=== PATIENT | male | born 1980 | race Caucasian/White ===

== ENCOUNTER 2019-10-14 21:34 | Inpatient (IN) ==
[2019-10-14] MEDS ORDERED: FENTANYL IV ONE (22:35)
[2019-10-14 22:55] LABS: BASO# 0.08 X1000 (0.0-0.2); BASO% 0.9 % (0.0-0.8); EOS% 2.2 % (0.0-10.0); HEMATOCRIT 48.6 % (42.0-52.0); HEMOGLOBIN 16.3 g/dL (14.0-18.0); IMM GRAN# 0.03 X1000 (0.0-0.04); IMM GRAN% 0.3 % (0.0-0.5); LYMPH# 1.72 X1000 (1.2-3.4); LYMPH% 19.2 % (20.5-51.1); MCH 29.7 PG (27-31); MCHC 33.5 g/dL (33-37); MCV 88.5 FL (81-99); MONO# 0.96 X1000 (0.11-0.59); MONO% 10.7 % (1.7-9.3); MPV 11.1 FL (7.4-10.4); NEUT# 5.97 X1000 (1.4-6.5); NEUT% 66.7 % (42.2-75.2); PLT 205 X1000 (130-400); RBC 5.49 XMIL (4.7-6.1); RDW 14.1 % (11.5-14.5); WBC 8.96 X1000 (4.8-10.8)
[2019-10-14 23:04] LABS: INR 1.03; PROTIME 13.6 Seconds (11.0-16.0); PTT 28.1 Seconds (22.3-41.8)
[2019-10-14 23:14] LABS: AGAP 16; ALB/GLOB RATIO 1.2; ALBUMIN 4.1 g/dL (3.5-5.0); ALKALINE PHOSPHATASE 92 U/L (32-122); BUN 9 mg/dL (8-22); CALCIUM 9.1 mg/dL (8.8-10.2); CHLORIDE 101 mmol/L (98-107); COSMO 283; CREATININE 0.9 mg/dL (0.7-1.2); ESTIMATED GFR > 60; GLUCOSE 145 mg/dL (70-104); GOT 34 U/L (10-34); GPT 48 U/L (10-44); POTASSIUM 4.6 mmol/L (3.5-5.1); SODIUM 141 mmol/L (136-145); TCO2 24 mmol/L (25-35); TOTAL BILIRUBIN 0.26 mg/dL (0.20-1.00); TOTAL PROTEIN 7.6 g/dL (6.3-8.3)
--- NOTE | 2019-10-14 23:52 | PROVIDER DOCUMENTATION ---
This chart was entered by Josefina Buck Scribe, acting as scribe for Fely Muñiz MD. HPI-Musculoskeletal Pain/Inj - GENERAL Chief Complaint: Extremity Injury Stated Complaint: humerus fx Time Seen by Provider: 10/14/19 21:53 Source: patient - HX OF PRESENT ILLNESS-MUSKULOSKELTAL Nature of Presenting Problem: pt is a 39 yr old male presenting via EMS post fall. pt admits he tripped and fell onto outstretched left arm, pt complains of pain to complete left arm, pt denies any other pain or injury. pt does admit drinking 6-7 beers tonight. 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 He has shoe inserts for irregular heights of his ankles from previous trauma and has no peripheral vision from the stroke. He uses a walker to get around. His father went out to get him parmesan cheese for his spaghetti and when he came back he was found on the driveway. Per EMS the patient fell picking up beer cans. Patient states he did not hit his head. Father is POA and caregiver. Patient drinks alcohol regularly. Quality of Pain: reports: throbbing Severity in ED: severe Onset/Duration: just prior to arrival Timing: still present Modifying Factors: improves with: movement (worsens pain) Any recent injury?: Yes Locality of Occurance: Home Similar Symptoms Previously?: No Recently seen or treated by another doctor?: No - FALL INJURY Location of Pain/Injury: reports: upper extremity (left arm) Reason for Fall: reports: lost balance Symptoms prior to fall:: reports: none Loss of Consciousness: no loss of consciousness Injury Associated Symptoms: reports: arm pain (complete left arm). denies: back/neck pain Review of Systems - Adult - REVIEW OF SYSTEMS - ADULT Constitutional: reports: no symptoms reported Eyes: reports: see HPI. denies: blurred vision, double vision Ears, Nose, Mouth & Throat: reports: no symptoms reported Cardiovascular: denies: chest pain, syncope Respiratory: reports: no symptoms reported Gastrointestinal: denies: abdominal pain, nausea Genitourinary: reports: no symptoms reported Musculoskeletal: reports: see HPI, bone pain (right arm). denies: back pain, neck pain Integumentary: reports: no symptoms reported Neurological: reports: see HPI. denies: dizziness/vertigo, headache/migraines Psychiatric: reports: alcohol/drug dependence Endocrine: reports: no symptoms reported Hematologic/Lymphatic: reports: no symptoms reported Allergic/Immunologic: reports: no symptoms reported All Other Systems: Reviewed and Negative Past History - Adult - PAST MEDICAL HISTORY-ADULT Review of Records: reports: Old Records Reviewed, Nursing Assessment Review, Medications Reviewed, Social history reviewed & non-contributory. Major Childhood Illnesses: reports: denies history Cardiovascular: reports: HTN Respiratory: reports: denies history Gastrointestinal: reports: denies history Obstetrical/Gynecological: reports: denies history Genitourinary: reports: denies history Musculoskeletal: reports: orthopedic injury (recent right ankle fx, frequent left shoulder dislocation) Neurological: reports: CVA, Seizures/Epilepsy, other Psychiatric: reports: depression, psychiatric problems Endocrine/Immune: reports: denies history Other Conditions: reports: denies history - PRIOR SURGERIES/PROCEDURES Surgical/Procedure History: reports: recent surgery (2 weeks, abdominal hernia), other (craniotomy) - PRIOR HOSPITALIZATIONS Prior Hospitalizations: reports: none - IMMUNIZATION STATUS Childhood Immunizations: See Nurse Assessment Flu Vaccine: See Nurse Assessment - FAMILY HISTORY Family History: reviewed, not pertinent - SOCIAL HISTORY Smoking: cigarettes Provider spent 3-5 mins advising pt. on dangers of tobacco.: Discussed manners to quit use, and f/u contacts for add'l counseling. Substance Use: alcohol Alcohol Use Frequency: every day Number of drinks per typical drinking period:: 5-10 drinks Living Situation: family Physical Exam-Injury Related - Physical Exam-Injury Related Initial Vital Signs Reviewed: Yes General Appearance: alert, obese, other (intoxicated appearence, vague historian) Eyes: other (pupils unequal but reactive, father states this is normal for him) Head, Ears, Nose, Mouth & Throat: normocephalic/atraumatic, moist mucous membranes Neck: non-tender, full range of motion, supple, normal inspection Respiratory: chest non-tender, lungs clear, normal breath sounds, no respiratory distress, no accessory muscle use Cardiovascular: normal peripheral pulses, regular rate, rhythm, no edema Chest/Breast: deferred Peripheral Pulses: radial (R): 2+, radial (L): 2+ Abdominal Exam: non tender, soft Lymphatic: no adenopathy Back Exam: normal inspection Extremity: deformity (left upper arm), swelling (left arm), tenderness (complete left arm), other (well healed surgical scar to left upper arm). negative: pulse deficit Integumentary: normal color, warm/dry Neurologic: grossly normal, no motor/sensory deficits Psych/Mental Status: normal mood/affect - Glascow Coma Score Best Eye Response ([place]): (4) open spontaneously Best Verbal Response (Phan): (5) oriented Best Motor Response (Phan): (6) obeys commands Phan Total: 15 Progress - PLAN OF CARE/RESULTS Progress/Plan/Lab Results: Vital Signs - 8 hr 10/14/19 21:49 10/14/19 23:00 10/15/19 00:28 Temperature 97.7 F Pulse Rate 99 H 95 H 96 H Respiratory Rate 19 16 18 Blood Pressure 131/96 126/90 146/103 O2 Sat by Pulse Oximetry 94 L 95 97 Laboratory Results - last 24 hr 10/14/19 10/14/19 10/14/19 22:29 22:29 22:29 WBC 8.96 RBC 5.49 Hgb 16.3 Hct 48.6 MCV 88.5 MCH 29.7 MCHC 33.5 RDW Std Deviation 14.1 Plt Count 205 MPV 11.1 H Immature Gran % (Auto) 0.3 Neut % (Auto) 66.7 Lymph % (Auto) 19.2 L Summit % (Auto) 10.7 H Eos % (Auto) 2.2 Baso % (Auto) 0.9 H Immature Gran # (Auto) 0.03 Neut # (Auto) 5.97 Lymph # (Auto) 1.72 Summit # (Auto) 0.96 H Eos # (Auto) 0.20 Baso # (Auto) 0.08 PT INR PTT (Actin FS) Sodium 141 Potassium 4.6 Chloride 101 Carbon Dioxide 24 L Anion Gap 16 BUN 9 Creatinine 0.9 Estimated GFR/1.73 m2 > 60 BUN/Creatinine Ratio 10 Glucose 145 H Estimat Average Glucose Hemoglobin A1c Calculated Osmolality 283 Calcium 9.1 Total Bilirubin 0.26 AST 34 ALT 48 H Alkaline Phosphatase 92 Total Protein 7.6 Albumin 4.1 Globulin 3.5 Albumin/Globulin Ratio 1.2 Urine Source Urine Color Urine Turbidity Urine pH Ur Specific Gleason Urine Protein Ur Glucose (Stick) Ur Ketones (Stick) Urine Blood Urine Nitrite Urine Bilirubin Urobilinogen Dipstick Urine Leukocytes Urine WBC (Auto) Urine RBC (Auto) U Epithel Cells (Auto) Urine Bacteria (Auto) Urine Opiates Screen Ur Oxycodone Screen Ur Methadone, Qual Ur Barbiturates Screen Ur Phencyclidine Scrn Ur Amphetamines Screen U Benzodiazepines Scrn Urine Cocaine Screen U Cannabinoids Screen Plasma/Serum Ethyl Alc 96 H 10/14/19 10/14/19 10/15/19 22:29 22:29 01:36 WBC RBC Hgb Hct MCV MCH MCHC RDW Std Deviation Plt Count MPV Immature Gran % (Auto) Neut % (Auto) Lymph % (Auto) Summit % (Auto) Eos % (Auto) Baso % (Auto) Immature Gran # (Auto) Neut # (Auto) Lymph # (Auto) Summit # (Auto) Eos # (Auto) Baso # (Auto) PT 13.6 INR 1.03 PTT (Actin FS) 28.1 Sodium Potassium Chloride Carbon Dioxide Anion Gap BUN Creatinine Estimated GFR/1.73 m2 BUN/Creatinine Ratio Glucose Estimat Average Glucose 212 Hemoglobin A1c 9.0 H Calculated Osmolality Calcium Total Bilirubin AST ALT Alkaline Phosphatase Total Protein Albumin Globulin Albumin/Globulin Ratio Urine Source CLEAN CATCH Urine Color YELLOW Urine Turbidity CLEAR Urine pH 6.0 Ur Specific Gleason 1.018 Urine Protein TRACE A Ur Glucose (Stick) NEGATIVE Ur Ketones (Stick) NEGATIVE Urine Blood NEGATIVE Urine Nitrite NEGATIVE Urine Bilirubin NEGATIVE Urobilinogen Dipstick NORMAL Urine Leukocytes NEGATIVE Urine WBC (Auto) <10 Urine RBC (Auto) <10 U Epithel Cells (Auto) <10 Urine Bacteria (Auto) NEGATIVE Urine Opiates Screen Ur Oxycodone Screen Ur Methadone, Qual Ur Barbiturates Screen Ur Phencyclidine Scrn Ur Amphetamines Screen U Benzodiazepines Scrn Urine Cocaine Screen U Cannabinoids Screen Plasma/Serum Ethyl Alc 10/15/19 01:36 WBC RBC Hgb Hct MCV MCH MCHC RDW Std Deviation Plt Count MPV Immature Gran % (Auto) Neut % (Auto) Lymph % (Auto) Summit % (Auto) Eos % (Auto) Baso % (Auto) Immature Gran # (Auto) Neut # (Auto) Lymph # (Auto) Summit # (Auto) Eos # (Auto) Baso # (Auto) PT INR PTT (Actin FS) Sodium Potassium Chloride Carbon Dioxide Anion Gap BUN Creatinine Estimated GFR/1.73 m2 BUN/Creatinine Ratio Glucose Estimat Average Glucose Hemoglobin A1c Calculated Osmolality Calcium Total Bilirubin AST ALT Alkaline Phosphatase Total Protein Albumin Globulin Albumin/Globulin Ratio Urine Source Urine Color Urine Turbidity Urine pH Ur Specific Gleason Urine Protein Ur Glucose (Stick) Ur Ketones (Stick) Urine Blood Urine Nitrite Urine Bilirubin Urobilinogen Dipstick Urine Leukocytes Urine WBC (Auto) Urine RBC (Auto) U Epithel Cells (Auto) Urine Bacteria (Auto) Urine Opiates Screen PRESUMPTIVE POSITIVE A Ur Oxycodone Screen NONE DETECTED Ur Methadone, Qual NONE DETECTED Ur Barbiturates Screen NONE DETECTED Ur Phencyclidine Scrn NONE DETECTED Ur Amphetamines Screen NONE DETECTED U Benzodiazepines Scrn NONE DETECTED Urine Cocaine Screen NONE DETECTED U Cannabinoids Screen PRESUMPTIVE POSITIVE A Plasma/Serum Ethyl Alc Orders Category Date Time Status Admit [facility] [place] Routine AdmDCTranf 10/15/19 03:05 Active Activity - Bedrest with BSC ORDERED Care 10/15/19 03:05 Active Apply Mechanical Device [QM] ORDERED Care 10/15/19 03:05 Active FSBS/Accucheck Result AC + HS Care 10/15/19 03:05 Active Intake and Output-Strict ORDERED Care 10/15/19 03:05 Active Nursing- MD Consult Request ROUTINE Care 10/15/19 00:51 Active Update & Confirm Home Medicati ROUTINE Care 10/15/19 00:52 Active Vital Signs Order Q 8-HR ASSESS Care 10/15/19 03:05 Active Z-Document. for Tele Applied ORDERED Care 10/15/19 03:05 Active shoulder [Shoulder Immobilizer] DIRECTED Care 10/15/19 00:30 Active Physician/Provider Consults Routine Cons 10/15/19 08:00 Ordered NPO Diet 10/14/19 Diet Enter Time Active HUMERUS-LEFT [RAD] Stat Exams 10/14/19 22:36 Taken A1C HGB W EST AVG GLUCOSE [CHEM] Routine Lab 10/15/19 03:05 Completed ALCOHOL BLOOD Stat Lab 10/14/19 22:29 Completed CBC WITH ELECTRONIC DIFF [HEME] Stat Lab 10/14/19 22:29 Completed COMPREHENSIVE METABOLIC PANEL [CHEM] Stat Lab 10/14/19 22:29 Completed PROTIME WITH INR [COAG] Routine Lab 10/15/19 06:00 Uncollected PROTIME WITH INR [COAG] Stat Lab 10/14/19 22:29 Completed PTT [COAG] Routine Lab 10/15/19 06:00 Uncollected PTT [COAG] Stat Lab 10/14/19 22:29 Completed URINALYSIS W/POSS RFLX CULT [URINALYSIS] Stat Lab 10/15/19 01:36 Completed URINE DRUG SCREEN Stat Lab 10/15/19 01:36 Completed 0.9% Sodium Chloride Inj [Ns] 1,000 ml Med 10/15/19 00:53 Active IV 100 mls/hr Acetaminophen [Tylenol] Med 10/15/19 03:05 Active 650 mg PO Q6H PRN PRN Fentanyl Med 10/14/19 22:35 Discontinued 100 microgm IV NOW ONE Hydromorphone [Dilaudid] Med 10/15/19 00:52 Active 1 mg IV Q3H PRN PRN Insulin Lispro [Humalog] Med 10/15/19 07:00 Active See Protocol SUBQ 0700,1100,1600,2100 Morphine Med 10/15/19 00:30 Discontinued 4 mg IV NOW ONE Ondansetron [Zofran] Med 10/15/19 03:05 Active 4 mg IV Q4H PRN PRN Telemetry [OM.EQ] Routine Oth 10/15/19 03:05 Active Transfer/Admit Order [TRANSFER] Routine Transfer 10/15/19 00:53 Completed Patient with significant humerus fracture. He uses a walker and father states he [place] both Dr [place] He does not remember the name of the Orthopedist who did the other work on him. He is unable to get around with his broken humerus as he uses the walker. His father is worried about taking him home as he is in his 60s and the patient is [address] Sun, environmental consultant for hospitalist. Patient was accepted for admission for or tho consult and final dispo. Further orders to be placed by his team. Result Diagrams: 10/14/19 22:29 10/14/19 22:29 - XRAY 1 XRAY Study: Humerus (left humeral shaft fracture, displaced) - CONSULTS/PCP/HOSPITALIST Notification #1 *Consult/PCP/Hospitalist*: Dr Sun Time Discussed: 00:31 Consult Disposition: Admit Departure - Departure Date of Disposition Decision: 10/15/19 Time of Disposition Decision: 00:31 DIAGNOSIS: Walker as ambulation aid, Seizure disorder, Alcohol abuse Fracture, humerus closed, shaft Qualifiers: Encounter type: initial encounter Fracture alignment: displaced Laterality: left Disposition: ADMITTED INPATIENT 09 Certified Medical Emergency: Emergent Condition: Stable - Critical Care Note This patient required my direct & personal management of CC.: No Attestation - Physician/ PATRICIO Attestation Patient care was provided by Advanced Practice Provider:: No The physician spent face to face time with patient:: Yes Advanced Practice Provider documentation review:: Supervising physician onsite and consulted in the evaluation and care of this patient. The physician did have a face to face encounter with the patient. This chart was documented by the indicated scribe, (Josefina Buck Scribe) and accurately reflects the services I performed and decisions made by me, Fely Muñiz MD, as attested by the provider's signature.
[2019-10-15] MEDS ORDERED: MORPHINE IV ONE (00:30)
[2019-10-15] MEDS ORDERED: NS 1,000 ML IV ONE (00:53)
[2019-10-15 01:40] LABS: URINE SOURCE CLEAN CATCH
[2019-10-15 01:44] LABS: BILIRUBIN URINE NEGATIVE (NEGATIVE); BLOOD URINE NEGATIVE (NEGATIVE); COLOR YELLOW; GLUCOSE URINE NEGATIVE (NEGATIVE); KETONE URINE NEGATIVE (NEGATIVE); LEUKOCYTES URINE NEGATIVE (NEGATIVE); NITRITE URINE NEGATIVE (NEGATIVE); PROTEIN URINE TRACE mg/dL (NEGATIVE); SP GRAVITY URINE 1.018; TURBIDITY URINE CLEAR (CLEAR); UR EPITHELIAL CELLS <10 /HPF (<10); URINE BACTERIA NEGATIVE /HPF; URINE RBC <10 /HPF (<10); URINE WBC <10 /HPF (<10); UROBILINOGEN URINE NORMAL (NORMAL)
[2019-10-15 02:01] LABS: UR AMPHETAMINES QUAL NONE DETECTED (NONE DETECT); UR BARBITUATES QUAL NONE DETECTED (NONE DETECT); UR BENZODIAZEPIN QUAL NONE DETECTED (NONE DETECT); UR CANNABINOIDS QUAL PRESUMPTIVE POSITIVE (NONE DETECT); UR COCAINE QUAL NONE DETECTED (NONE DETECT); UR METHADONE QUAL NONE DETECTED (NONE DETECT); UR OPIATES QUAL PRESUMPTIVE POSITIVE (NONE DETECT); UR OXYCODONE QUAL NONE DETECTED (NONE DETECT); UR PCP QUAL NONE DETECTED (NONE DETECT)
[2019-10-15] MEDS ORDERED: TYLENOL PO PRN (03:05)
[2019-10-15] MEDS ORDERED: ZOFRAN IV PRN (03:05)
[2019-10-15] MEDS: DILAUDID IV PRN ×6 (03:44→20:33)
[2019-10-15] MEDS ORDERED: ATIVAN IV PRN (06:09)
--- NOTE | 2019-10-15 07:22 | Diag Imaging Result Doc PS360 ---
EXAM: HUMERUS-LEFT HISTORY: humerus fracture TECHNIQUE: Four views COMPARISON: 06/27/2017 FINDINGS: There is a spiral fracture through the midshaft of the humerus. The proximal and distal shafts are angled approximately 15 degrees. There is a large fracture fragment medially displaced. Orthopedic plate and screws to the humeral head and proximal shaft. IMPRESSION: Fracture to the mid humerus Electronically signed by Saman Naidu 10/15/2019 7:20 AM
[2019-10-15] MEDS ORDERED: ZYRTEC PO SCH (09:00)
[2019-10-15] MEDS ORDERED: PRINIVIL PO SCH (09:00)
--- NOTE | 2019-10-15 09:37 | PROGRESS NOTE ---
DATE: 10/15/2019 SUBJECTIVE: Mr. Posada was admitted I believe 06/09/2018. He came to the emergency room yesterday at 22:42. This is a 39-year-old male who had a mechanical fall, tripped and fell on outstretched left arm, complaining of pain in the left arm. Denied any other injury. He admitted drinking about 6 to 7 beers yesterday. History of previous abscess in the brain that required craniotomy and caused a stroke. He has shoe inserts for irregular heights of his ankles from previous trauma and has no peripheral vision after his stroke. He uses a walker to get around. His father went out to get him some parmesan cheese for his spaghetti. When he came back, he found him on the driveway, so brought him in here to the emergency room. He states that he is in some pain. His left arm is in a sling. OBJECTIVE: Vital signs: Temperature 97.8 degrees, pulse 102, respirations 20, blood pressure 140/60. HEENT: Pupils are equal and round. Lungs: Clear in all lung spain. Cardiovascular: Regular rhythm and rate without murmur or S3. Abdomen: Soft. Skin: Warm and dry. Urine output is 1600 mL. IMAGING: She had a humerus x-ray that showed a fracture to the to left mid humerus. ASSESSMENT AND PLAN: 1. Left humerus fracture. 2. Spontaneous fall or mechanical fall. 3. History of a stroke with no peripheral vision. MEDICATIONS: Seroquel 25 mg q.p.m. He has Keppra 1500 mg p.o. b.i.d. I think for history of seizures in the past. He is on Wellbutrin XL 150 mg at bedtime, getting Dilaudid 1 mg IV q.3 hours p.r.n., and he is on Zyrtec 10 mg daily. REVIEW OF HIS LAB: Review of his lab, white count is 8960, hematocrit 48, platelet count 205,000. Chemistry: Sodium 141, potassium 4.6, chloride 101, BUN 9, creatinine 0.9. cc: Parviz Rush MD
[2019-10-15] MEDS: HUMALOG SUBQ SCH ×4 (10:02→20:39)
[2019-10-15] MEDS: KEPPRA PO SCH ×2 (13:29→20:32)
--- NOTE | 2019-10-15 15:16 | PROGRESS NOTE ---
DATE: 10/15/2019 SUBJECTIVE: Mr. Posada fell outside on his outstretched left arm. Complained of pain in the left arm. He did admit to drinking 6-7 beers. Also past medical history is consistent with crania. He had a previous abscess in his brain, required craniectomy and then he had a stroke as a result of that, apparently. Because of his irregular leg lengths, he has some shoe inserts. He lost his peripheral vision after his stroke. Uses a walker. Father went to get him some cheese for his spaghetti and when he came back he found him in the driveway. He had x-rays done of the humerus yesterday and has fracture to the mid humerus. He has a spiral fracture through the mid shaft of the humerus. Proximal and distal shafts are angled approximately 15 degrees. There is large fracture fragment medially displaced orthopedic plate screws to the humerus head and proximal shaft. Dr. Gonzalez has evaluated. They will not do surgery here and want us to try and get him transferred to [facility] and I believe that is where he had the original surgery done with [facility] in [place], so we made that phone call and will see if we can get him over there. cc: Parviz Rush MD
--- NOTE | 2019-10-15 17:02 | ORTHOPAEDICS CONSULTATION ---
DATE: 10/15/2019 Mr. Posada is seen status post a fall with recurrent left arm fracture. He has a history of previous surgical fixation of the proximal humerus. I reviewed his x-rays and physical exam. Currently he has a fracture below the plate, which is comminuted and displaced. This would require orthopedic trauma specialty to fix. I have discussed with his father that where the fracture is is in a complicated area due to the previous surgical fixation of this. We do not have the capability of fixing this here adequately or the experience. Fortunately, he is neurovascularly intact. We placed him in a splint. He will need to follow up with 1 of the orthopedic traumatologists over in [place] at [facility], either Dr. David Cespedes or one of the other orthopedic trauma specialists for further definitive care. He can be transferred or follow up with him on an outpatient basis as the need requires. cc: Jayson Gonzalez MD
--- NOTE | 2019-10-15 18:24 | HISTORY AND PHYSICAL ---
HISTORY OF PRESENT ILLNESS: Mr. Posada is a 39-year-old. He reports that he tripped and fell on outstretched left arm. Complained of pain in the left arm and came in. His father stated he had gone out to get some parmesan cheese to put on his spaghetti, came back and found he was in the driveway, so apparently a mechanical fall. X-ray showed a pretty severe break in the left humerus, spiral fracture through the mid shaft of the humerus. The proximal and distal shafts were angled approximately 15 degrees. There was a large fracture fragment medially displaced. Orthopedic plate and screws to the humeral head and proximal shaft were appreciated. History of hypertension. His urine drug screen was positive for cannabinoids. Plasma alcohol level was 96. He is positive for opiates as well. PAST MEDICAL HISTORY: Otherwise, I do not see anything else significant. FAMILY HISTORY: I did not see any significant reporting. SOCIAL HISTORY: He does smoke and he does drink alcohol every day. REVIEW OF SYSTEMS: Reported in the emergency room. HEENT: Denies any blurred vision, double vision. Cardiovascular: No chest pain or syncope. Respiratory: No increased work of breathing or dyspnea. Gastrointestinal: Denies any abdominal pain or nausea. Musculoskeletal: Left arm pain as above. Neurologic: No focal changes. Psychiatric: He reports he is alcohol and drug dependent. Allergies/immunologic: No pertinent history. PHYSICAL EXAMINATION: VITAL SIGNS: On presentation, afebrile, temperature 97.8 degrees, pulse 102, respirations 20, blood pressure 140/60. HEENT: Pupils are equal and round. LUNGS: Clear in all lung spain. CARDIOVASCULAR: Regular rhythm and rate without murmur or S3. ABDOMEN: Soft. SKIN/EXTREMITIES: Warm and dry. Left arm in a sling with quite a bit of pain and swelling of proximal arm. Skin otherwise warm and dry. NECK: Supple without adenopathy or thyromegaly. REVIEW OF LABORATORY DATA: White count 8960, hematocrit 88, platelet count 205,000. Sodium 141, potassium 4.6, chloride 101, BUN 9, creatinine 0.9, blood sugar is 145, calcium is 9.1, albumin is 4.1. Urine drug screen: The plasma ethanol level was 96. The urine was positive for cannabinoids and positive for opiates. Urinalysis unremarkable. ASSESSMENT AND PLAN: 1. Fractured left humerus in an arm that had internal fixation before. Get Orthopedic to evaluate. Plan is to admit for some pain control. 2. Possibility of alcohol withdrawal with his history. 3. Cannabinoid and opioid use. Aware. 4. Hypertension. cc: Parviz Rush MD
--- NOTE | 2019-10-15 18:28 | DISCHARGE SUMMARY ---
ADMISSION DATE: 10/15/2019 DISCHARGE DATE: HOSPITAL COURSE: Mr. Posada came in on 10/14/2019, actually came in about 3:00, was admitted early this morning. He had suffered a left humerus fracture in an arm that already had some hardware internal fixation before. He had a spiral fracture through the midshaft of the humerus, proximal and distal shafts angled approximately 15 degrees, large fracture fragment medially displaced, and could appreciate an orthopedic plate and screws to the humeral head and proximal shaft. Dr. Luis Gonzalez evaluated. He has a history of previous surgical fixation of the proximal humerus. He reviewed the x-rays and physical exam. He has a fracture below the plate that is comminuted and displaced. This would require Orthopedic Trauma Specialty to fix, and so we called and asked to transfer to [facility] agreed to do that, Dr. Smith, and will transfer to the medical service. Discussed with Hospitalist Service, will arrange for things to transfer. cc: Parviz Rush MD
--- NOTE | 2019-10-15 19:27 | ORTHOPAEDICS CONSULTATION ---
DATE: 10/15/2019 REASON FOR CONSULTATION: Left midshaft humerus fracture. HISTORY OF PRESENT ILLNESS: Mr. 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 His father found him in the driveway when he arrived home. He regularly uses a walker to ambulate due to having "one leg shorter than the other". Upon arrival to the ER, he was found to have a left midshaft humerus fracture and Orthopedics has been consulted for this. PAST MEDICAL HISTORY: As mentioned above. PAST SURGICAL HISTORY: 1. Abdominal hernia. 2. Craniotomy. 3. Right ankle surgery. 4. Left shoulder surgery. He is unable to tell me who performed the left shoulder surgery and is unsure if it was done in [place] or in [place]. The right ankle surgery was done by Dr. Bell. FAMILY HISTORY: Noncontributory. SOCIAL HISTORY: He is a current smoker and uses alcohol frequently. He lives at home with his father and uses a walker to ambulate due to his history of right ankle fracture. PHYSICAL EXAMINATION: He is awake, alert, and oriented. He is obese. His left arm is in a sling and is very tender to light palpation along the left upper arm. He does have flexion and extension of his left wrist as well as his fingers. His sensation is fully intact. He has a strong palpable left radial pulse. His right leg does seem to be shorter than his left leg just upon general examination. His sensation is fully intact to his lower extremities as well. He does have a well-healed surgical scar to his left upper arm. LABS AND IMAGING: Upon admission, his glucose was noted to be elevated at 145, and his alcohol level was 96. His urine drug screen revealed positive for opiates and THC. A left humerus x-ray reveals a spiral fracture through the midshaft humerus with the proximal and distal shaft being angled 15 degrees. There is a large fracture fragment medially displaced as well as orthopedic plates and screws to the humeral head and proximal shaft. ASSESSMENT: Displaced fracture of mid shaft humerus with previous plates and screws to the humeral head and proximal shaft. PLAN: Dr. Gonzalez has seen patient today. He states that he would be best suited to be transferred to [place] with one of the orthopedic trauma surgeons handling his case. This has been discussed with the patient. Dr. Rush, who the patient is admitted to, will be placing this order for transfer once he has seen the patient. A coaptation splint was placed on his left upper extremity today and post splint application, he was noted to still continue to have full range of motion of his wrist and fingers as well as a strong radial pulse. Thank you for this consultation. Dictated by SYDNI Aguilar for Jayson Gonzalez MD cc: Jayson Gonzalez MD
[2019-10-15] MEDS ORDERED: SEROQUEL PO SCH (21:00)
[2019-10-15] MEDS ORDERED: WELLBUTRIN XL PO SCH (21:00)
[2019-10-15] MEDS ORDERED: NICODERM PATCH TD ONE (21:20)
[2019-10-15 23:59] VITALS: BP 134/92
[2019-10-16] MEDS: DILAUDID IV PRN (00:13)
== END 2019-10-16 01:35 | disposition short-term general hospital (02) | DRG 563 ==
LOC: ED 21:34 → 4N 10-15 02:37 → SUATTDRO 10-15 02:37
PROVIDERS: ATTEND Emergency Medicine